=== PATIENT | female | born 1965 | race Caucasian/White ===

== ENCOUNTER 2018-01-06 21:26 | Emergency (ER) | payer OTHER ==
[~2018-01-06] VITALS: Ht 144.8 cm; Wt 72.7 kg
[2018-01-06] MEDS ORDERED: ACETAMINOPHEN 325 MG TABLET ONE (21:38)
[2018-01-06] MEDS ORDERED: IBUPROFEN 400 MG TABLET ONE (21:38)
[2018-01-06] MEDS ORDERED: ACETAMINOPHEN 325 MG TABLET PO ONE (21:45)
[2018-01-06] MEDS ORDERED: IBUPROFEN 400 MG TABLET PO ONE (21:45)
[2018-01-07] MEDS ORDERED: AZITHROMYCIN 250 MG TABLET PO ONE
[2018-01-07] MEDS ORDERED: ALBUTEROL SULFATE HFA 90 MCG/PUFF 8 GM INHALER IH ONE
[2018-01-07 00:14] VITALS: BP 116/70
== END 2018-01-07 00:22 | disposition home or self-care (01) ==
LOC: EMS 21:27
DX: J42 Unspecified chronic bronchitis (principal)
CPT/HCPCS: 71046; 94640; 99284; J3535

== ENCOUNTER 2018-01-24 19:49 | Emergency (ER) | payer OTHER ==
[~2018-01-24] VITALS: Ht 154.9 cm; Wt 73.0 kg
[2018-01-24] MEDS ORDERED: ACETAMINOPHEN 500 MG TABLET PO ONE (22:30)
[2018-01-24 23:35] VITALS: BP 105/61
== END 2018-01-25 00:19 | disposition home or self-care (01) ==
LOC: EMS 19:49
DX: S00.93XA Contusion of unspecified part of head, initial encounter (principal); Y04.2XXA Assault by strike against or bumped into by another person, initial encounter; Y93.89 Activity, other specified; Y92.89 Other specified places as the place of occurrence of the external cause; Y99.8 Other external cause status
CPT/HCPCS: 70450; 99284

== ENCOUNTER 2018-02-15 23:17 | Emergency (ER) | payer OTHER ==
[~2018-02-15] VITALS: Ht 157.5 cm; Wt 72.7 kg
[2018-02-16 03:42] VITALS: BP 124/70
[2018-02-16] MEDS ORDERED: IBUPROFEN 600 MG TABLET PO ONE (04:30)
== END 2018-02-16 04:32 | disposition home or self-care (01) ==
LOC: EMS 23:17
DX: L84 Corns and callosities (principal); M79.671 Pain in right foot
CPT/HCPCS: 99281

== ENCOUNTER 2018-04-24 21:28 | Emergency (ER) | payer OTHER ==
[~2018-04-24] VITALS: Ht 144.8 cm; Wt 63.6 kg
[2018-04-25 01:06] VITALS: BP 140/80
[2018-04-25] MEDS ORDERED: IBUPROFEN 600 MG TABLET PO ONE (01:30)
== END 2018-04-25 02:19 | disposition home or self-care (01) ==
LOC: EMS 21:30
DX: S90.861A Insect bite (nonvenomous), right foot, initial encounter (principal); L08.9 Local infection of the skin and subcutaneous tissue, unspecified; W57.XXXA Bitten or stung by nonvenomous insect and other nonvenomous arthropods, initial encounter; Y93.89 Activity, other specified; Y92.89 Other specified places as the place of occurrence of the external cause; Y99.8 Other external cause status
CPT/HCPCS: 99283

== ENCOUNTER 2018-06-20 15:06 | Inpatient (IN) | payer MEDICAID ==
[~2018-06-20] VITALS: Ht 157.5 cm; Wt 68.6 kg
[2018-06-20] MEDS ORDERED: ZOLPIDEM TARTRATE 10 MG TABLET PO PRN (17:00)
[2018-06-20] MEDS ORDERED: LORazepam 2 MG TABLET PO PRN (17:00)
[2018-06-20] MEDS ORDERED: HALOPERIDOL 5 MG TABLET PO PRN (17:00)
[2018-06-20 17:35] VITALS: BP 121/77
[2018-06-20] MEDS ORDERED: MAG HYDROX/AL HYDROX/SIMETH ES 30 ML SUSPENSION UDCUP PO PRN (18:45)
[2018-06-20] MEDS ORDERED: LOPERAMIDE HCL 2 MG CAPSULE PO PRN (18:45)
[2018-06-20] MEDS ORDERED: BENZOCAINE/MENTHOL LOZENGE MM PRN (18:45)
[2018-06-20] MEDS ORDERED: ALBUTEROL SULFATE HFA 90 MCG/PUFF 8 GM INHALER IH PRN (18:45)
[2018-06-20] MEDS ORDERED: ACETAMINOPHEN 325 MG TABLET PO PRN (18:45)
[2018-06-20] MEDS ORDERED: IBUPROFEN 600 MG TABLET PO PRN (18:45)
[2018-06-20] MEDS ORDERED: PETROLATUM,WHITE 71 GM JELLY TP PRN (18:45)
[2018-06-20] MEDS ORDERED: CloNIDine HCL 0.1 MG TABLET PO PRN (18:45)
[2018-06-20] MEDS ORDERED: BACITRACIN 28.4 GM OINTMENT TP PRN (18:45)
[2018-06-20] MEDS ORDERED: MAGNESIUM HYDROXIDE SUSPENSION 30 ML UDCUP PO PRN (18:45)
[2018-06-20] MEDS ORDERED: ONDANSETRON HCL 4 MG TABLET PO PRN (18:45)
[2018-06-21 00:57] VITALS: BP 109/74
[2018-06-21 08:12] VITALS: BP 100/60
[2018-06-21 08:36] LABS: BASOPHILS % (AUTO) 0.1 % (0.0-2.0); EOSINOPHILS % (AUTO) 5.6 % (1.0-6.0); HEMATOCRIT 42.4 % (36-46); HEMOGLOBIN 14.2 g/dL (12.0-16.0); LYMPHOCYTES # (AUTO) 2.7 K/uL (1.0-4.8); LYMPHOCYTES % (AUTO) 36.2 % (22.0-44.0); MEAN CORPUSCULAR HEMOGLOBIN 31.8 pg (26.0-34.0); MEAN CORPUSCULAR HGB CONC 33.6 G/dL (31.0-37.0); MEAN CORPUSCULAR VOLUME 95 fL (80-100); MONOCYTES # (AUTO) 0.4 K/uL (0.1-1.0); MONOCYTES % (AUTO) 5.9 % (2.0-9.0); NEUTROPHILS # (AUTO) 3.9 K/uL (1.8-7.7); NEUTROPHILS % (AUTO) 52.2 % (40.0-70.0); PLATELET COUNT (AUTO) 251 K/uL (150-450); RED BLOOD CELL COUNT(AUTO) 4.47 MIL/uL (4.00-5.20); RED CELL DISTRIBUTION WIDTH 13.3 % (11.5-14.5)
[2018-06-21] MEDS: OMEPRAZOLE 20 MG CAPSULE PO SCH (08:44)
[2018-06-21] MEDS: RisperiDONE 1 MG TABLET PO SCH ×2 (08:44→17:11)
[2018-06-21] MEDS: DOCUSATE SODIUM 100 MG CAPSULE PO SCH (08:44)
[2018-06-21 09:09] LABS: ALANINE AMINOTRANSFERASE 34 U/L (12-78); ALBUMIN 3.4 g/dL (3.4-5.0); ALKALINE PHOSPHATASE 92 U/L (46-116); ANION GAP 5 mmol/L (8-16); ASPARTATE AMINOTRANSFERASE 20 U/L (15-37); BILIRUBIN,TOTAL 0.6 mg/dL (0.1-1.0); CALCIUM, TOTAL 8.4 mg/dL (8.8-10.5); CARBON DIOXIDE 30 mmol/L (22-29); CHLORIDE 104 mmol/L (98-107); CHOL/HDL RATIO 4.4 (3.9-5.7); CHOLESTEROL 219 mg/dL (131-200); CREATININE 0.85 mg/dL (0.60-1.30); FREE T4 (FREE THYROXINE) 0.64 ng/dL (0.76-1.46); GLOMERULAR FILTR. RATE CALC > 60 mL/min (>60); GLUCOSE,RANDOM 97 mg/dL (70-110); HCG,QUANTITATIVE 2 mIU/mL (0-6); HDL CHOLESTEROL 50 mg/dL (40-60); LDL CHOL (CALC.) 122 mg/dL (0-130); POTASSIUM 3.9 mmol/L (3.5-5.1); SODIUM SERUM 139 mmol/L (136-145); TRIGLYCERIDES 235 mg/dL (15-150); UREA NITROGEN, BLOOD 21 mg/dL (7-18)
[2018-06-21 16:23] VITALS: BP 102/65
[2018-06-21] MEDS: MAGNESIUM SULFATE 454 GM BOX TP SCH (17:00)
[2018-06-22 01:57] VITALS: BP 103/62
[2018-06-22 08:06] VITALS: BP 100/70
[2018-06-22] MEDS: DOCUSATE SODIUM 100 MG CAPSULE PO SCH (08:42)
[2018-06-22] MEDS: OMEPRAZOLE 20 MG CAPSULE PO SCH (08:42)
[2018-06-22] MEDS: RisperiDONE 1 MG TABLET PO SCH ×2 (08:42→16:01)
[2018-06-22] MEDS: MAGNESIUM SULFATE 454 GM BOX TP SCH ×2 (12:01→16:05)
[2018-06-22 16:11] VITALS: BP 118/68
[2018-06-23 06:48] VITALS: BP 115/73
[2018-06-23] MEDS: RisperiDONE 1 MG TABLET PO SCH (08:22)
[2018-06-23] MEDS: OMEPRAZOLE 20 MG CAPSULE PO SCH (08:22)
[2018-06-23 08:32] VITALS: BP 100/73
[2018-06-23] MEDS: DOCUSATE SODIUM 100 MG CAPSULE PO SCH (08:57)
[2018-06-23] MEDS: MAGNESIUM SULFATE 454 GM BOX TP SCH (08:57)
[2018-06-23] MEDS ORDERED: OMEGA-3/DHA/EPA/FISH OIL 1,000 MG CAPSULE PO SCH (09:00)
[2018-06-23] MEDS ORDERED: OMEP20 PO (10:41)
[2018-06-23] MEDS ORDERED: RISP1 PO (10:41)
== END 2018-06-23 13:30 | disposition home or self-care (01) | DRG 751 ==
LOC: B2S 16:50
PROVIDERS: ADMIT Psychiatry & Neurology Psychiatry; ATTEND Psychiatry & Neurology Psychiatry
DX: F32.3 Major depressive disorder, single episode, severe with psychotic features (principal); E83.51 Hypocalcemia; E78.00 Pure hypercholesterolemia, unspecified; F12.90 Cannabis use, unspecified, uncomplicated; E78.5 Hyperlipidemia, unspecified; G47.00 Insomnia, unspecified; K59.00 Constipation, unspecified; F41.9 Anxiety disorder, unspecified; Z71.51 Drug abuse counseling and surveillance of drug abuser
CPT/HCPCS: 83036; 84439; 84443

== ENCOUNTER 2019-05-06 13:28 | Emergency (ER) | payer MEDICAID, OTHER ==
[~2019-05-06] VITALS: Ht 154.9 cm; Wt 61.4 kg
[~2019-05-06 13:28] MED LIST: OMEP20 PO; RISP1 PO
[2019-05-06] MEDS ORDERED: IBUP-2070 PO (13:37)
[2019-05-06] MEDS ORDERED: DICLOFENAC SODIUM 1% 100 GM GEL [4GM] TP ONE (15:45)
[2019-05-06 16:05] VITALS: BP 102/54
== END 2019-05-06 16:42 | disposition home or self-care (01) ==
LOC: EMS 13:29
DX: M72.2 Plantar fascial fibromatosis (principal); F41.9 Anxiety disorder, unspecified; F32.9 Major depressive disorder, single episode, unspecified

== ENCOUNTER 2020-01-01 14:25 | Emergency (ER) | payer OTHER ==
[~2020-01-01] VITALS: Ht 160 cm; Wt 68.2 kg
[~2020-01-01 14:25] MED LIST changes: +IBUP-2070 PO; -OMEP20 PO; -RISP1 PO
[2020-01-01] MEDS ORDERED: ACETAMINOPHEN 500 MG TABLET PO ONE (15:15)
[2020-01-01 16:58] VITALS: BP 122/90
== END 2020-01-01 16:57 | disposition home or self-care (01) ==
LOC: EMS 14:30
DX: S63.502A Unspecified sprain of left wrist, initial encounter (principal); F41.9 Anxiety disorder, unspecified; F32.9 Major depressive disorder, single episode, unspecified; X50.0XXA Overexertion from strenuous movement or load, initial encounter; Y93.89 Activity, other specified; Y92.89 Other specified places as the place of occurrence of the external cause; Y99.8 Other external cause status

== ENCOUNTER 2020-02-17 09:50 | Emergency (ER) | payer OTHER ==
[~2020-02-17] VITALS: Ht 144.8 cm; Wt 68.2 kg
[2020-02-17] MEDS ORDERED: CEPHALEXIN MONOHYDRATE 500 MG CAPSULE PO ONE (10:15)
[2020-02-17] MEDS ORDERED: PERTUSS(ACELL),DIPH,TET VAC/PF 0.5 ML VIAL IM ONE (10:15)
[2020-02-17 10:38] VITALS: BP 121/72
== END 2020-02-17 10:41 | disposition home or self-care (01) ==
LOC: EMS 09:56
DX: L03.211 Cellulitis of face (principal); D16.4 Benign neoplasm of bones of skull and face; F32.9 Major depressive disorder, single episode, unspecified; F41.9 Anxiety disorder, unspecified
CPT/HCPCS: 90471; 90715

== ENCOUNTER 2022-01-10 14:55 | Emergency (ER) | payer OTHER ==
[~2022-01-10] VITALS: Ht 154.9 cm; Wt 72.0 kg
[2022-01-10 15:39] LABS: BASOPHILS % (AUTO) 0.5 % (0.0-2.0); EOSINOPHILS % (AUTO) 0.6 % (1.0-6.0); HEMATOCRIT 45.2 % (36-46); HEMOGLOBIN 15.2 g/dL (12.0-16.0); LYMPHOCYTES % (AUTO) 23.4 % (22.0-44.0); MEAN CORPUSCULAR HEMOGLOBIN 31.2 pg (26.0-34.0); MEAN CORPUSCULAR HGB CONC 33.6 G/dL (31.0-37.0); MEAN CORPUSCULAR VOLUME 93 fL (80-100); MONOCYTES # (AUTO) 0.3 K/uL (0.1-1.0); MONOCYTES % (AUTO) 3.7 % (2.0-9.0); NEUTROPHILS # (AUTO) 6.2 K/uL (1.8-7.7); NEUTROPHILS % (AUTO) 71.8 % (40.0-70.0); PLATELET COUNT (AUTO) 236 K/uL (150-450); RED BLOOD CELL COUNT(AUTO) 4.86 MIL/uL (4.00-5.20); RED CELL DISTRIBUTION WIDTH 13.2 % (11.5-14.5)
[2022-01-10 15:46] LABS: ANION GAP 9 mmol/L (8-16); CALCIUM, TOTAL 8.9 mg/dL (8.8-10.5); CARBON DIOXIDE 24 mmol/L (22-29); CHLORIDE 100 mmol/L (98-107); CREATININE 1.04 mg/dL (0.60-1.30); GLOMERULAR FILTR. RATE CALC 55 mL/min (>60); GLUCOSE,RANDOM 398 mg/dL (70-110); POTASSIUM 4.3 mmol/L (3.5-5.1); SODIUM SERUM 133 mmol/L (136-145); UREA NITROGEN, BLOOD 20 mg/dL (7-18)
[2022-01-10 15:58] LABS: ALANINE AMINOTRANSFERASE 74 U/L (12-78); ALBUMIN 3.6 g/dL (3.4-5.0); ALKALINE PHOSPHATASE 129 U/L (46-116); ASPARTATE AMINOTRANSFERASE 36 U/L (15-37); BILIRUBIN,TOTAL 0.6 mg/dL (0.1-1.0); HCG,QUANTITATIVE 4 mIU/mL (0-6); PHOSPHORUS 3.4 mg/dL (2.5-4.9); TOTAL PROTEIN, SERUM 7.5 g/dL (6.4-8.2)
[2022-01-10 16:06] LABS: ACETONE,BLOOD NEGATIVE (NEGATIVE)
[2022-01-10] MEDS ORDERED: MAGNESIUM SULFATE 2 GM/WATER 50 ML IV ONE (16:30)
[2022-01-10] MEDS ORDERED: SODIUM CHLORIDE 0.9% 1,000 ML IV ONE (16:30)
[2022-01-10 18:04] VITALS: BP 108/70
[2022-01-10 19:16] LABS: GLUCOMETER DEV NAME(LOC) ERT.5; GLUCOSE,POINT OF CARE 244 MG/DL (70-110)
== END 2022-01-10 19:13 | disposition home or self-care (01) ==
LOC: EMS 14:55
DX: E11.65 Type 2 diabetes mellitus with hyperglycemia (principal); E83.42 Hypomagnesemia; F41.9 Anxiety disorder, unspecified; F32.9 Major depressive disorder, single episode, unspecified
CPT/HCPCS: 36415; 80053; 82009; 82962; 83735; 84100; 84702; 85025; 96365; 96366; 99284; J3475; J7030

== ENCOUNTER 2025-06-24 15:27 | Emergency (ER) | payer OTHER ==
[~2025-06-24] VITALS: Ht 152.4 cm; Wt 54.5 kg
[2025-06-24 15:43] VITALS: TEMP 97.9
[2025-06-24 16:29] LABS: PLATELET COUNT (AUTO) 373 K/uL (150-450); RED BLOOD CELL COUNT(AUTO) 3.86 MIL/uL (4.00-5.20); RED CELL DISTRIBUTION WIDTH 12.8 % (11.5-14.5); WHITE BLOOD COUNT (AUTO) 8.8 K/uL (4.5-11.0)
[2025-06-24 18:00] VITALS: BP 124/79; PULSE 81; RESP 17; O2SAT 100
[2025-06-24 18:27] LABS: APPEARANCE,URINE CLEAR (CLEAR); GLUCOSE, URINE (UA) 300-500 mg/dL (NEGATIVE); LEUKOCYTE ESTERASE ,URINE LARGE (NEGATIVE); NITRATE,URINE NEGATIVE (NEGATIVE); OCCULT BLOOD,URINE NEGATIVE (NEGATIVE); SPECIFIC GRAVITIY, URINE 1.024 (1.003-1.030)
[2025-06-24 18:41] LABS: SQUAMOUS EPITHELIAL CELL,UR Few /LPF (None Seen)
[2025-06-24] MEDS: PHENAZOPYRIDINE HCL 100 MG TABLET PO ONE (18:47)
[2025-06-24] MEDS: CEPHALEXIN MONOHYDRATE 500 MG CAPSULE PO ONE (18:47)
[2025-06-24] MEDS: ACETAMINOPHEN 500 MG TABLET PO ONE (18:48)
[2025-06-24] MEDS ORDERED: CEPH-558 PO (19:34)
[2025-06-24] MEDS ORDERED: PHEN-674 PO (19:34)
[2025-06-24] MEDS ORDERED: DOXY-354 PO (19:34)
[2025-06-24] MEDS ORDERED: GYNEVAG VG (19:34)
== END 2025-06-24 19:57 | disposition home or self-care (01) ==
LOC: EMS 15:27
DX: N39.0 Urinary tract infection, site not specified (principal); B37.31 Acute candidiasis of vulva and vagina; E11.9 Type 2 diabetes mellitus without complications; F41.9 Anxiety disorder, unspecified; F32.A Depression, unspecified; R30.0 Dysuria
CPT/HCPCS: 81001; 82962; 85025; 87086; 87147; 99284